=== PATIENT | male | born 1980 | race Hispanic/Latino ===

== ENCOUNTER 2018-04-21 00:53 | Emergency (ER) | payer BC ==
--- OUTSIDE RECORDS SUMMARY | 2018-04-21 00:55 | XMS REPORT | Summary of Care ---
:1980 Author Organization [facility] Address [address] [facility] [place] [address]- Encounter HQ Encntr_alias(FIN) [id number] Date(s): 11/18/17 - 11/18/[address] [place] [phone] Discharge Disposition: Home or Self Care Attending Physician: Lashell Lamas PA-C Vital Signs No data available for this section Problem List No data available for this section Allergies, Adverse Reactions, Alerts No data available for this section Medications No data available for this section Results No data available for this section Immunizations No data available for this section Procedures No data available for this section Social History No data available for this section Assessment and Plan No data available for this section
--- OUTSIDE RECORDS SUMMARY | 2018-04-21 00:55 | XMS REPORT | Summary of Care ---
:1980 Author Organization [facility] Internal Medicine [place] Address [address] [facility] [place] [address]- Encounter HQ Encntr_alias(FIN) [id number] Date(s): 11/18/17 - 11/18/17 [facility] Internal Medicine [address] [place] [phone] Discharge Disposition: Home or Self Care Attending [...]
--- OUTSIDE RECORDS SUMMARY | 2018-04-21 00:55 | XMS REPORT | Continuity of Care Document ---
:1980 Author Organization Interface Problems Problem Status Onset Date Classification Date Comments Source Reported Medications Medication Details Route Status Patient Ordering Order Source Instructions Provider Date Allergies, Adverse Reactions, Alerts Substance Category Reaction Severity Reaction Status Date Comments Source type Reported Immunizations Immunization Date Given Site Status Last Updated Comments Source Results Order Results Value Reference Date Interpretation Comments Source Name Range Vital Signs Vital Sign Value Date Comments Source Encounters Location Location Encounter Encounter Reason Attending ADM DC Status Source Details Type Number For Provider Date Date Visit Outpatient [id number] 11/18 [facility] [place] Outpatient [id number] 11/18 [facility] Outpatient [id number] Lashell 11/18 11/19 [facility] Outpatient [id number] ronaldo 11/18 11/19 [facility] [place] Procedures Procedure Code Date Perfomer Comments Source
[2018-04-21] MEDS ORDERED: NA CHLORIDE 0.9% 1,000 ML ONE (01:09)
[2018-04-21 01:19] LABS: Absolute Lymphocytes (CBC) 2.2 K/uL (0.7-4.9); Absolute Monocytes 0.5 K/uL (0.1-1.3); Absolute Neutrophil 2.6 K/uL (1.8-8.0); Basophils % 0.8 % (0-1.3); Eosinophils % 3.7 % (0-4.4); Hematocrit 43.7 % (39.6-49.0); Lymphocytes % 40.1 % (15.3-44.8); MCH 31.9 pg (27.0-35.0); MCV 91.8 fL (80-100); MPV 8.9 fL (7.6-11.3); Monocytes % 9.1 % (3.3-12.3); RBC Red Blood Cell Count 4.75 M/uL (4.33-5.43)
[2018-04-21 01:32] LABS: Potassium 3.4 mmol/L (3.5-5.1)
[2018-04-21] MEDS ORDERED: ACETAMINOPHEN 500 MG TAB ONE (01:46)
[2018-04-21 01:47] LABS: Urine Blood 1+ (NEG); Urine Glucose NEGATIVE (NEG); Urine Protein NEGATIVE (NEG); Urine Specific Gravity 1.005 (1.005-1.030)
[2018-04-21] MEDS ORDERED: TETANUS & DIPHTHERIA TOX,ADULT 0.5 ML VIAL ONE (03:14)
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
[2018-04-21] MEDS ORDERED: IBUPROFEN 400 MG TAB ONE (03:31)
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
== END 2018-04-21 03:35 | disposition home or self-care (01) ==
LOC: ER 00:53
PROC: 0JQ00ZZ Repair Scalp Subcutaneous Tissue and Fascia, Open Approach (ICD-10-PCS; principal; 2018-04-21)
DX: S01.81XA Laceration without foreign body of other part of head, initial encounter (principal); N20.1 Calculus of ureter; V49.40XA Driver injured in collision with unspecified motor vehicles in traffic accident, initial encounter; Z23 Encounter for immunization; I10 Essential (primary) hypertension; F41.9 Anxiety disorder, unspecified
CPT/HCPCS: 36415; 70450; 71260; 72125; 74177; 80048; 81003; 85025; 90714; 96360; 99285; J7030; Q9967